=== PATIENT | male | born 1955 ===

== ENCOUNTER → 2022-07-17 12:45 | Outpatient (CLI) | payer MEDICARE, SELFPAY ==
--- NOTE | ~2022-07-17 | XR_ITS ---
XR chest 2V 07/17/2022 12:59 Indication: Chest pain Procedure: PA and lateral views of the chest Comparison: Comparison to multiple prior studies sequentially, with oldest reviewed study dated 10/22. Findings: Status post median sternotomy for CABG. No focal air space disease, pulmonary edema, pleura l effusion or suspected pneumothorax. There is minimal right basilar atelectasis. Impression: 1: Right basilar atelectasis. Reviewed, dictated and finalized at location A. [employer] Impression: 1: Right basilar atelectasis.
== END ==
PROVIDERS: PCP Family Medicine; Visit Provider Family Medicine
DX: R07.9 Chest pain, unspecified (principal); R91.8 Other nonspecific abnormal finding of lung field
CPT/HCPCS: 71046

== ENCOUNTER 2022-11-05 18:00 | Outpatient (RCR) | payer MEDICARE, SELFPAY ==
[2022-10-17 09:07] VITALS: PULSE 79
[2022-10-30 19:04] LABS: Glucose Point of Care 88 mg/dl (65-105)
[2022-11-03 19:01] LABS: Glucose Point of Care 114 mg/dl (65-105)
== END 2022-12-09 08:28 | disposition home or self-care (01) ==
LOC: ANHCPREHAB 18:00
PROVIDERS: PCP Family Medicine; Visit Provider Internal Medicine Cardiovascular Disease
DX: I20.8 Other forms of angina pectoris (principal)
CPT/HCPCS: 93798

== ENCOUNTER 2022-12-26 19:38 | Inpatient (IN) | payer MEDICARE, SELFPAY ==
--- NOTE | ~2022-12-26 | XR_ITS ---
EXAMINATION: XR chest 2V 12/26/2022 20:04 INDICATION: Chest pain. History of stent placement 3 weeks ago. PROCEDURE: 2 view chest COMPARISON: Comparison to multiple prior studies sequentially, with oldest reviewed study dated 08/29. FINDINGS: The lungs are clear. The cardiomediastinal silhouette is within normal limits. There are no pleural effusions. There is no pneumothorax suspected. Status post median sternotomy for CABG. IMPRESSION: 1: NO ACUTE CARDIOPULMONARY DISEASE. Reviewed, dictated and finalized at location A.
--- NOTE | 2022-12-26 19:42 | ECG_ITS ---
Measurements Intervals [place] Rate: 67 P: 62 MN: 161 QRS: -44 QRSD: 100 T: 63 QT: 393 QTc: 416 Interpretive Statements SINUS RHYTHM LEFT AXIS DEVIATION INCOMPLETE RIGHT BUNDLE BRANCH BLOCK DELAYED PRECORDIAL R/S TRANSITION CONSIDER INFERIOR INFARCT, AGE INDETERMINATE ABNORMAL ECG NO PREVIOUS ECG AVAILABLE FOR COMPARISON Electronically Signed On 12-26-2022 20:26:27 CDT by Jonas Pantoja D.O.
[2022-12-26 20:04] LABS: Basophils Percent Auto 0.4 % (0.2-1.2); Eosinophils Absolute Auto 0.1 K/mm3 (0-0.3); Eosinophils Percent Auto 1.6 % (0-4.4); Hematocrit 40.4 % (42.0-52.0); Hemoglobin 12.8 g/dL (14.0-18.0); Immature Granulocyte Absolute 0.01 K/mm3 (0.00-0.031); Immature Granulocyte Percent A 0.1 % (0-0.5); Lymphocytes Percent Auto 33.4 % (18.3-44.2); Mean Corpuscular HGB Conc 31.7 g/dl (32-36); Mean Corpuscular Hemoglobin 26.5 pg (26-34); Mean Corpuscular Volume 83.6 fl (80-100); Mean Platelet Volume 9.8 fl (7.4-10.4); Monocytes Absolute Auto 0.7 K/mm3 (0.1-0.6); Monocytes Percent Auto 9.5 % (2.6-8.5); Neutrophils Absolute Auto 4.1 K/mm3 (1.3-6.7); Platelet Count Result 191 k/mm3 (150-375); Red Blood Count 4.83 M/mm3 (4.6-6.20); Red Cell Distribution Width 14.2 % (11.5-14.5); White Blood Count 7.5 K/mm3 (4.5-10.0)
[2022-12-26 20:17] LABS: Alanine Aminotransferase 27 U/L (6-50); Albumin Level 4.7 g/dL (3.5-5.1); Alkaline Phosphatase 103 U/L (38-126); Anion Gap 10 mmol/L (8-16); Aspartate Amino Transferase 29 U/L (17-59); Bilirubin,Total 0.3 mg/dL (0.2-1.3); Blood Urea Nitrogen 18 mg/dL (9-20); Calcium 8.8 mg/dL (8.4-10.2); Carbon Dioxide 31 mmol/L (22-30); Chloride 96 mmol/L (98-107); Estimated Glomerular Filt Rate > 60; Glucose 129 mg/dL (65-110); Lipase 134 U/L (23-300); Sodium 137 mmol/L (137-145)
[2022-12-26 20:21] LABS: Partial Thromboplastin Time 27.9 SECONDS (22.3-36.8); Prothrombin Time 14.1 Seconds (11.1-14.7)
[2022-12-26 20:22] VITALS: BP 142/74; PULSE 74; RESP 15; TEMP 36.4; O2SAT 100
[2022-12-26 20:27] LABS: Troponin I < 0.012 ng/mL (0.000-0.034)
[2022-12-27] VITALS (17 sets, daily range): BP systolic 125–136; BP diastolic 58–69; PULSE 60–87; RESP 14–18; TEMP 36.2–36.7; O2SAT 95–100; BMI 27.2
[2022-12-27] MEDS: NITROGLYCERIN SL 0.4 MG TABLET SUBLINGUAL (00:32)
--- NOTE | 2022-12-27 00:33 | PC.NURSE ---
Patient states he took three nitro tablets around 1900 on 12/26/2022. Per patient it tasted not normal and there was no headache after taking tablets. Notified Dr. Haynes EDP about patient taking three tablets. Per EDP Dr. Haynes administer more nitro tablets 0.4mg sublingual.
--- NOTE | 2022-12-27 00:35 | PC.NURSE ---
Patient states his chest pain was a 2/10 before taking nitro tablet. Blood pressure was 125/63, SPO2 was 96%, HR was 73 bpm, and RR was 15. After five minutes of giving nitro tablets chest pain was a 1/10, blood pressure was 112/64, SPO2 was 95%, RR was 17, and HR was 74 bpm.
[2022-12-27 00:49] LABS: Troponin I 0.464 ng/mL (0.000-0.034)
--- NOTE | 2022-12-27 01:04 | ED.GENADULT ---
HPI - General Adult General Chief complaint: Chest Pain Stated complaint: CHEST PAIN RECENT STENT PLACEMENT AT [facility] Time Seen by Provider: 12/27/22 00:00 History of Present Illness HPI narrative: Patient 67-year-old gentleman who presents the emergency department with chief complaint of chest discomfort. Patient reports that he has history of cardiac disease and had a bypass and also has had stent placement patient reports that he is currently on Plavix has not missed any doses of his Plavix and reports that this evening he had tightness that began in his chest the patient states he took some nitroglycerin that did not really help much but the bottle had been open several months ago the patient states that the pain continued and was pretty mild about a 2 or 3. Related Data Home Medications Medication Instructions Recorded Confirmed omega-3 fatty acids 1,000 mg 1,000 mg PO DAILY 04/02/20 07/15/22 capsule (Fish Oil Concentrate) vitamins A,C,E-vvrj-fpudjh 4,296 1 cap PO BID 04/02/20 07/15/22 mcg-226 mg-90 mg capsule (PreserVision AREDS) Allergies Allergy/AdvReac Type Severity Reaction Status Date / Time bacitracin Allergy Unknown SKIN Verified 12/26/22 20:27 IRRITATION neomycin Allergy Unknown SKIN Verified 12/26/22 20:27 IRRITATION Penicillins Allergy Unknown Rash Verified 12/26/22 20:27 polymyxin B Allergy Unknown SKIN Verified 12/26/22 20:27 IRRITATION Review of Systems Review of Systems: A 10 system review of systems was completed on the patient and is negative except for what is stated in the HPI. Nursing and ancillary documentation was reviewed. [facility] Past Medical History Medical History CAD (coronary artery disease) HLD (hyperlipidemia) HTN (hypertension) Low testosterone Type 2 diabetes mellitus without complications Surgical History Surgical History History of coronary artery bypass graft S/P arthroscopic knee surgery Family History Family History (Updated 10/17/22 @ 08:28 by Susie Witt RN) Mother Patient's mother is in good health Father Diabetes mellitus Social History Social History Smoking packs per day: 0.5 Smoking cigarettes per day: 10.0 Years smoked: 20 Smoking pack-years: 10.00 Smoking status: Former smoker Smoking end date: 06/01/01 Alcohol intake: never Substance use: never Substance use type: does not use Living arrangements: with family Occupation/Education: occupation Gender identity (if verbalized by the patient): Male Exam Narrative: GENERAL: Well-appearing, well-nourished, and in no acute distress. HEAD: Normocephalic, atraumatic. EYES: PERRLA and EOMI. ENT: Nares clear, no rhinorrhea or epistaxis. Mucous membranes moist. NECK: Supple. CHEST: Clear to auscultation. No respiratory distress. HEART: Regular rate and rhythm. No murmur heard. Normal peripheral pulses. ABDOMEN: Soft, nontender, nondistended, normal active bowel sounds. EXTREMITIES: Normal range of motion. No edema. SKIN: Warm, dry, no rash. NEURO: No focal deficits. Alert and oriented x3. PSYCH: Normal mood and affect. Course Vital Signs Vital signs: Vital Signs Temperature 36.4 C 12/26/22 20:22 Pulse Rate 74 12/26/22 20:22 Respiratory Rate 15 12/26/22 20:22 Blood Pressure 142/74 H 12/26/22 20:22 Pulse Oximetry 100 12/26/22 20:22 Oxygen Delivery Room Air 12/26/22 20:22 Temperature 36.4 C 12/26/22 20:22 Pulse Rate 66 12/27/22 00:01 Respiratory Rate 17 12/27/22 00:01 Blood Pressure 128/63 12/27/22 00:01 Pulse Oximetry 97 12/27/22 00:01 Oxygen Delivery Room Air 12/27/22 00:01 Medical Decision Making [facility] Narrative Medical decision making narrative: Differential diagnosis includes ACS, noncardiac c
[2022-12-27] MEDS: ENOXAPARIN 100 MG/ML SYRINGE 95 MG SUB-Q ×3 (01:11→21:42)
--- NOTE | 2022-12-27 03:12 | ADMGEN ---
This patient, Micheal Chin, was admitted to IMU Room 209-01 at 0312. Patient/family oriented to hospital policies and general routines including ID bracelet, bed and alarms, visiting hours, pain management, procedures, bathroom and other care routines, personal items, smoking policy, room service/diet, and visiting hours. Information on how to activate the Rapid Response Team has been discussed. Patient/Family are encouraged to report perceived risks to care and to ask questions if they do not understand what they are told or what they should do.
--- NOTE | 2022-12-27 04:07 | ECG_ITS ---
Measurements Intervals [place] Rate: 65 P: [place]: 0 QRS: -36 QRSD: 116 T: 78 QT: 394 QTc: 411 Interpretive Statements SINUS RHYTHM LEFT AXIS DEVIATION INTRAVENTRICULAR CONDUCTION DELAY DELAYED PRECORDIAL R/S TRANSITION INFERIOR INFARCT, AGE INDETERMINATE ABNORMAL ECG COMPARED TO ECG 12/26/2022 19:46:55 NO SIGNIFICANT CHANGES Electronically Signed On 12-27-2022 11:03:54 CDT by Jonas Pantoja D.O.
[2022-12-27 08:53] LABS: Glucose Point of Care 132 mg/dl (65-105)
--- NOTE | 2022-12-27 09:39 | PM.IMHP ---
H&P: HPI History of Present Illness Date/Time: 12/27/22 09:39 Chief Complaint: Chest pain Narrative: Patient 67-year-old gentleman who presents the emergency department with chief complaint of chest discomfort.? Patient reports that he has history of cardiac disease and had a bypass and also has had stent placement patient reports that he is currently on Plavix has not missed any doses of his Plavix and reports that this evening he had tightness that began in his chest the patient states he took some nitroglycerin that did not really help much but the bottle had been open several months ago the patient states that the pain continued and was pretty mild about a 2 or 3. Review of Systems Review of Systems: - CONSTITUTIONAL: Denies weight loss, fever and chills. - HEENT: Denies changes in vision and hearing - RESPIRATORY: Denies SOB and cough. - CV: Denies palpitations and reports CP. - GI: Denies abdominal pain, nausea, vomiting and diarrhea. - : Denies dysuria and urinary frequency. - MSK: Denies myalgia and joint pain. - SKIN: Denies rash and pruritus. - NEUROLOGICAL: Denies headache and syncope. - PSYCHIATRIC: Denies recent changes in mood. Denies anxiety and depression. [facility] Past Medical History Medical History CAD (coronary artery disease) HLD (hyperlipidemia) HTN (hypertension) Low testosterone Type 2 diabetes mellitus without complications Surgical History Surgical History History of coronary artery bypass graft S/P arthroscopic knee surgery Family History Family History (Updated 10/17/22 @ 08:28 by Susie Witt RN) Mother Patient's mother is in good health Father Diabetes mellitus Social History Social History Smoking packs per day: 0.5 Smoking cigarettes per day: 10.0 Years smoked: 30 Smoking pack-years: 15.00 Smoking status: Former smoker Tobacco type: cigarettes Second hand tobacco smoke exposure: No Smoking end date: 06/01/05 Alcohol intake: never Substance use: never Substance use type: does not use Lack of Transportation: No Lack of Food: Never True Current Housing: I Have Housing Concerned About Future Housing: No Difficulty Paying Gas/Electric Bills: No Difficulty Paying for Meds: No Currently Unemployed: No Education: Master's Degree or Higher Difficulty w/ Childcare or Family Care: No Living arrangements: with family Occupation/Education: occupation Gender identity (if verbalized by the patient): Male Spiritual care concerns: No Meds Home Medications and Allergies Home Medications Medication Instructions Recorded Confirmed Type omega-3 fatty acids 1,000 mg 1,000 mg PO DAILY 04/02/20 12/27/22 History capsule (Fish Oil Concentrate) vitamins A,C,Q-tjws-hsptjr 4,296 1 cap PO BID 04/02/20 12/27/22 History mcg-226 mg-90 mg capsule (PreserVision AREDS) metoprolol succinate 50 mg 50 mg PO DAILY #90 tabs 12/27/21 12/27/22 Rx tablet,extended release 24 hr empagliflozin 10 mg tablet 10 mg PO DAILY #90 tabs 08/08/22 12/27/22 Rx (Jardiance) linagliptin 5 mg tablet (Tradjenta) 5 mg PO QAM #90 tabs 08/15/22 12/27/22 Rx metformin 500 mg tablet,extended 1,000 mg PO BID #360 tabs 09/24/22 12/27/22 Rx release 24 hr atorvastatin 40 mg tablet 40 mg PO DAILY #90 tabs 11/19/22 12/27/22 Rx Adult One Daily Multivitamin 1 tablet PO BID 12/27/22 12/27/22 History Plavix 75 mg PO DAILY 12/27/22 12/27/22 History acetyltyrosine-vitamin B6 1 cap PO BID 12/27/22 12/27/22 History aspirin 81 mg tablet 81 mg PO DAILY 12/27/22 12/27/22 History finasteride 1 mg tablet (Propecia) 1 mg PO DAILY 12/27/22 12/27/22 History glimepiride 1 mg PO DAILY 12/27/22 12/27/22 History ranolazine 1,000 mg PO BID 12/27/22 12/27/22 History Allergies
--- NOTE | 2022-12-27 09:44 | PM.CNCAR ---
Assessment and Plan Assessment and plan (1) Non-STEMI (non-ST elevated myocardial infarction): Code(s): I21.4 - Non-ST elevation (NSTEMI) myocardial infarction Status: Acute Plan This is a 67-year-old man with multivessel coronary disease, previous CORETTA graft to the LAD recent aggressive PCI to the proximal LAD into the 1st diagonal branch involving rotational atherectomy and stenting done in October of this year at [place]. He was seen 3 days ago by his shuttlecock assembler there and was stable at that time. He now has had an episode of ischemic pain and a troponin rise consistent with a non ST elevation IN. The most likely scenario is that the patient has experienced to stent thrombosis regarding his recently deployed device. Because most of his LAD receives flow from his CORETTA graft his ECG is essentially unremarkable. The patient family and I had a long extensive conversation in the room today for at least 45-50 minutes discussing the options. Obviously 1 option is to transfer him back to [place] to consider follow-up angiography today to assess the status of his proximal LAD/1st diagonal stent. Another option is to be more conservative, treat this medically and he can follow-up earlier than scheduled with his established physician there. Go given the complexity of his disease and the fact that he required rotational atherectomy I do not believe it is reasonable or prudent to bring him to the laboratory worker here at [facility]. At this point the patient and the family are considering these options. If they choose to be aggressive then I would recommend transferring him over to [place] where his physicians can review his recent angiograms and make the decision whether it is reasonable or worthwhile to bring him back to the laboratory worker again. I would recommend continuing his dual anti-platelet therapy statin and beta-thien which for some reason have not been ordered since he has been hospitalized. Sheldon Wilson MD [facility] History of Present Illness History of Present Illness Consult date/time: 12/27/22 09:44 Reason For Visit: chest pain, elevated troponin Narrative: This is a 67-year-old man I am seeing today at the request of the hospitalist because of a non ST elevation IN. The patient is known to me from a long time ago and has a longstanding history of coronary artery disease. He currently receives his care from a physician at [facility] but has been transferring his care from 1 shuttlecock assembler to another for a while now. He was in his usual state of health when in the middle of the 90 started to have some pressure-like retrosternal chest pain that it was moderate in intensity he had his family drive him and [facility]'s emergency room for evaluation where he was seen and evaluated and admitted to the hospital. His troponin levels initially were normal but have risen to a level of 1.65. His electrocardiogram shows no acute ischemic changes or changes of acute injury. In this setting I am seeing him in consultation. The patient has he has some very mild residual central chest discomfort or something feels just not quite right but otherwise is visiting with his family and does not have any complaints otherwise at this time. He has a long history of coronary artery disease with previous coronary bypass grafting and PCI. He recently came under the care of his current shuttlecock assembler in September of this year who was seeing him for a 2nd opinion because of anginal chest pain with exertion that was persistent despite aggressive medical therapy. Catheterization demonstrated significant proximal LAD disease jeopardizing flow into a proximal diagonal branch. The remainder of his LAD apparently received perfusion from a previously placed CORETTA graft. He also has moderate nonocclusive disease in the right coronary and circumflex. Here 0 he underwent an aggressive intervention in the proximal LAD into the diagonal involving rotational atherectomy, drug-elu
[2022-12-27] MEDS: ASPIRIN 81 MG CHEWABLE TABLET PO (10:47)
[2022-12-27] MEDS: OMEGA 3 POLYUNSAT FATTY ACIDS 1 GM CAP PO (10:48)
[2022-12-27] MEDS: CLOPIDOGREL BISULFATE 75 MG TABLET PO (10:48)
[2022-12-27] MEDS: EMPAGLIFLOZIN 10 MG TABLET PO (10:48)
[2022-12-27] MEDS: ATORVASTATIN 40 MG TABLET PO (10:48)
[2022-12-27] MEDS: OPTI-GEN TAB 1 TABLET PO ×2 (10:48→18:47)
[2022-12-27] MEDS: RANOLAZINE 500 MG TAB.ER.12H 1000 MG PO ×2 (10:49→21:41)
[2022-12-27] MEDS: GLIMEPIRIDE 1 MG TABLET PO (10:50)
[2022-12-27] MEDS: METOPROLOL SUCCINATE EXT REL 50 MG TABCR PO (10:56)
[2022-12-27] MEDS: MULTIVITAMINS THERAPEUTIC TAB (*BKC) 1 TABLET PO (18:47)
[2022-12-28] VITALS (14 sets, daily range): BP systolic 112–134; BP diastolic 58–65; PULSE 53–76; RESP 14–20; TEMP 36.3–36.7; O2SAT 96–98
[2022-12-28] MEDS: OMEGA 3 POLYUNSAT FATTY ACIDS 1 GM CAP PO (09:47)
[2022-12-28] MEDS: ASPIRIN 81 MG CHEWABLE TABLET PO (09:47)
[2022-12-28] MEDS: GLIMEPIRIDE 1 MG TABLET PO (09:48)
[2022-12-28] MEDS: OPTI-GEN TAB 1 TABLET PO ×2 (09:48→17:36)
[2022-12-28] MEDS: RANOLAZINE 500 MG TAB.ER.12H 1000 MG PO ×2 (09:48→20:01)
[2022-12-28] MEDS: METOPROLOL SUCCINATE EXT REL 50 MG TABCR PO (09:49)
[2022-12-28] MEDS: CLOPIDOGREL BISULFATE 75 MG TABLET PO (09:49)
[2022-12-28] MEDS: ATORVASTATIN 40 MG TABLET PO (09:54)
[2022-12-28] MEDS: EMPAGLIFLOZIN 10 MG TABLET PO (09:54)
[2022-12-28] MEDS: MULTIVITAMINS THERAPEUTIC TAB (*BKC) 1 TABLET PO ×2 (09:54→17:36)
[2022-12-28] MEDS: ENOXAPARIN 100 MG/ML SYRINGE 95 MG SUB-Q ×2 (09:54→20:01)
[2022-12-28 10:01] LABS: Glucose Point of Care 228 mg/dl (65-105)
--- NOTE | 2022-12-28 11:38 | PM.IMPN ---
Progress Note: A&P Assessment and Plan (1) Type 2 diabetes mellitus without complications: Qualifiers: Diabetes mellitus group home insulin use: without group home use Qualified Code(s): E11.9 - Type 2 diabetes mellitus without complications Code(s): E11.9 - Type 2 diabetes mellitus without complications Status: Acute (2) HTN (hypertension): Qualifiers: Hypertension type: essential hypertension Qualified Code(s): I10 - Essential (primary) hypertension Code(s): I10 - Essential (primary) hypertension Status: Acute (3) CAD (coronary artery disease): Code(s): I25.10 - Atherosclerotic heart disease of [place] coronary artery without angina pectoris Status: Acute (4) HLD (hyperlipidemia): Qualifiers: Hyperlipidemia type: mixed hyperlipidemia Qualified Code(s): E78.2 - Mixed hyperlipidemia Code(s): E78.5 - Hyperlipidemia, unspecified Status: Acute (5) Low testosterone: Code(s): R79.89 - Other specified abnormal findings of blood chemistry Status: Acute (6) Non-STEMI (non-ST elevated myocardial infarction): Code(s): I21.4 - Non-ST elevation (NSTEMI) myocardial infarction Status: Acute Plan Patient presented with chest pain. Known history of coronary artery disease status post CABG and stents. Underlying hypertension hyperlipidemia and type 2 diabetes mellitus. Chest x-ray with no focal infiltrate. EKG was sinus rhythm no ST-T changes. Initial troponin was negative however 3 hour delta troponin came back elevated at 0.464 and continued to rise to 1.6 this a.m.. Lipase is normal. Admit for non-STEMI. Lovenox dose given in the ER and did receive aspirin. He is already on aspirin and Plavix at home. Cardiology has been consulted. Lovenox received. Diagnostic CT showed significant proximal LAD disease underwent rotational atherectomy with drug-eluting stent placement to large diagonal and proximal LAD segment. This was performed on 11/28/2022. He also had moderate disease involving circumflex and RCA. Recently went to see his regular counter server of for follow-up. Discussed with Cardiology. Due to non STEMI and recent workup at [place] recommend transfer to higher facility this was discussed with the patient and wants to get transferred to [place] for further treatment. Transfer excepted by cardiology team at [place]. Awaiting bed placement Subjective Date/time seen: 12/28/22 11:38 Interval history: No further chest pain. Able to ambulate. No fever chills. No shortness of breath all questions answered Review of Systems Review of Systems: All systems reviewed & are unremarkable except as noted in HPI and below Exam Narrative: GENERAL: Well-appearing, well-nourished, and in no acute distress. HEAD: Normocephalic, atraumatic. EYES: PERRLA and EOMI. ENT: Nares clear, no rhinorrhea or epistaxis.? Mucous membranes moist. NECK: Supple. CHEST: Clear to auscultation.? No respiratory distress. HEART: Regular rate and rhythm.? No murmur heard.? Normal peripheral pulses. ABDOMEN: Soft, nontender, nondistended, normal active bowel sounds. EXTREMITIES: Normal range of motion.? No edema. SKIN: Warm, dry, no rash. NEURO: No focal deficits.? Alert and oriented x3. PSYCH: Normal mood and affect. Objective Data Vital Signs Vital Signs: Vital Signs - 24 hr 12/27/22 11:47 12/27/22 12:00 12/27/22 12:00 Temperature 97.8 F Pulse Rate 71 70 70 Respiratory Rate 16 16 Blood Pressure 127/61 Pulse Oximetry 99 99 Oxygen Delivery Room Air 12/27/22 16:00 12/27/22 14:00 12/27/22 16:00 Temperature 97.4 F L Pulse Rate 66 72 69 Respiratory Rate 14 Blood Pressure 125/61 Pulse Oximetry 97 Oxygen Delivery 12/27/22 18:00 12/27/22 16:00 12/27/22 19:08 Temperature 97.2 F L Pulse Rate 87 87 66 Respiratory Rate 14 16 Blood Pressure 128/69 Pulse Oximetry 97 98 Oxygen Delivery Room Air 11/30
[2022-12-28 14:44] LABS: Troponin I 0.529 ng/mL (0.000-0.034)
[2022-12-28] MEDS: NITROGLYCERIN SL 0.4 MG TABLET SUBLINGUAL (16:41)
[2022-12-29] VITALS (17 sets, daily range): BP systolic 105–141; BP diastolic 50–68; PULSE 53–68; RESP 10–20; TEMP 36.4–36.7; O2SAT 96–100
[2022-12-29 08:08] LABS: Basophils Percent Auto 0.6 % (0.2-1.2); Eosinophils Absolute Auto 0.1 K/mm3 (0-0.3); Hemoglobin 14.6 g/dL (14.0-18.0); Immature Granulocyte Absolute 0.02 K/mm3 (0.00-0.031); Immature Granulocyte Percent A 0.3 % (0-0.5); Lymphocytes Absolute Auto 2.18 K/mm3 (0.9-3.2); Lymphocytes Percent Auto 31.8 % (18.3-44.2); Mean Corpuscular HGB Conc 32.4 g/dl (32-36); Mean Corpuscular Hemoglobin 26.8 pg (26-34); Mean Corpuscular Volume 82.6 fl (80-100); Mean Platelet Volume 10.2 fl (7.4-10.4); Monocytes Absolute Auto 0.5 K/mm3 (0.1-0.6); Monocytes Percent Auto 7.6 % (2.6-8.5); Neutrophils Percent Auto 57.7 % (45.5-73.1); Platelet Count Result 206 k/mm3 (150-375); Red Blood Count 5.45 M/mm3 (4.6-6.20); Red Cell Distribution Width 14.2 % (11.5-14.5); White Blood Count 6.9 K/mm3 (4.5-10.0)
[2022-12-29 08:21] LABS: Alanine Aminotransferase 46 U/L (6-50); Albumin Level 4.6 g/dL (3.5-5.1); Alkaline Phosphatase 76 U/L (38-126); Anion Gap 7 mmol/L (8-16); Aspartate Amino Transferase 57 U/L (17-59); Bilirubin,Total 0.3 mg/dL (0.2-1.3); Blood Urea Nitrogen 25 mg/dL (9-20); Calcium 9.1 mg/dL (8.4-10.2); Carbon Dioxide 27 mmol/L (22-30); Chloride 99 mmol/L (98-107); Estimated CRCL calculation 81 ml/min; Estimated Glomerular Filt Rate > 60; Glucose 165 mg/dL (65-110); Magnesium 1.9 mg/dL (1.6-2.3); Potassium 4.2 mmol/L (3.4-5.0); Sodium 133 mmol/L (137-145)
[2022-12-29] MEDS: EMPAGLIFLOZIN 10 MG TABLET PO (11:09)
[2022-12-29] MEDS: ENOXAPARIN 100 MG/ML SYRINGE 95 MG SUB-Q ×2 (11:11→21:21)
[2022-12-29] MEDS: METOPROLOL SUCCINATE EXT REL 50 MG TABCR PO (11:11)
[2022-12-29] MEDS: MULTIVITAMINS THERAPEUTIC TAB (*BKC) 1 TABLET PO ×2 (11:12→17:00)
[2022-12-29] MEDS: GLIMEPIRIDE 1 MG TABLET PO (11:12)
[2022-12-29] MEDS: OPTI-GEN TAB 1 TABLET PO ×2 (11:12→17:00)
[2022-12-29] MEDS: ASPIRIN 81 MG CHEWABLE TABLET PO (11:12)
[2022-12-29] MEDS: OMEGA 3 POLYUNSAT FATTY ACIDS 1 GM CAP PO (11:12)
[2022-12-29] MEDS: ATORVASTATIN 40 MG TABLET PO (11:12)
[2022-12-29] MEDS: CLOPIDOGREL BISULFATE 75 MG TABLET PO (11:12)
[2022-12-29] MEDS: RANOLAZINE 500 MG TAB.ER.12H 1000 MG PO ×2 (11:20→21:21)
--- NOTE | 2022-12-29 11:52 | PM.PNCARD ---
Progress Note: A&P Assessment and Plan (1) Non-STEMI (non-ST elevated myocardial infarction): Code(s): I21.4 - Non-ST elevation (NSTEMI) myocardial infarction Status: Acute Plan 67-year-old man with coronary artery disease recent complex PCI to the proximal LAD/1st diagonal as detailed in the notes above done at [facility]. He presents with a non ST elevation OR over the weekend here. He is otherwise clinically stable at this time. Awaiting transfer to [place], bed availability is apparently delaying the process of transfer. He is otherwise very stable. Spoke to the patient again about this situation again I do not have any weight influence bed availability at [place] and accelerate this process. Sheldon Wilson MD [facility] Subjective Date/time seen: Date of service: 12/29/22 11:52 Interval history: Follow-up visit in this 67-year-old man with: Coronary artery disease presenting over the weekend here with acute coronary syndrome, non ST-elevation OR. Patient with recent complex PCI to the proximal LAD/1st diagonal at [place] involving rotational atherectomy and stenting. Complexity of the case was dictated in my consult note. Since then he has been stable troponins are down trending and he is no longer having any ischemic symptoms. Patient is awaiting transfer to [place] for follow-up evaluation at that institution. I was asked to see him today by the patient/family and family service caseworker apparently the patient is wanting to speak to me again about the delay in getting a bed available at [place] for his transfer there. We had a long conversation about this on Thursday and I do not believe for perceive any change in his condition between then and this morning. Exam Const: General: comfortable and no acute distress HENMT: Mouth: Yes moist mucous membranes Eyes: Sclera: sclerae normal Neck: Neck: supple and no JVD Resp: Effort & Inspection: normal respiratory effort Auscultation: clear to auscultation bilaterally Cardio: Rate: regular rate Rhythm: regular rhythm Skin: General skin exam: normal color Neuro: Other: Alert and oriented Extrem: Other: No edema, good perfusion Objective Data Vital Signs Vital Signs: Vital Signs - 24 hr 12/28/22 12:00 12/28/22 12:00 12/28/22 14:00 Temperature 36.4 C Pulse Rate 67 68 64 Respiratory Rate 20 Blood Pressure 134/61 Pulse Oximetry 98 Oxygen Delivery 12/28/22 16:00 12/28/22 12:00 12/28/22 16:00 Temperature Pulse Rate 68 68 Respiratory Rate 20 Blood Pressure Pulse Oximetry 98 98 Oxygen Delivery Room Air Room Air 12/28/22 16:00 12/28/22 18:00 12/28/22 20:00 Temperature 36.6 C 36.7 C Pulse Rate 68 67 65 Respiratory Rate 14 18 Blood Pressure 126/62 122/65 Pulse Oximetry 98 98 Oxygen Delivery 12/28/22 20:00 12/28/22 22:00 12/28/22 20:00 Temperature Pulse Rate 64 70 70 Respiratory Rate 18 Blood Pressure Pulse Oximetry 98 Oxygen Delivery Room Air 12/29/22 00:00 12/29/22 00:00 12/29/22 02:00 Temperature 36.6 C Pulse Rate 65 63 59 L Respiratory Rate 18 Blood Pressure 105/50 L Pulse Oximetry 98 Oxygen Delivery 12/29/22 04:00 12/29/22 04:00 12/29/22 06:00 Temperature 36.7 C Pulse Rate 53 L 53 L 55 L Respiratory Rate 18 Blood Pressure 117/64 Pulse Oximetry 99 Oxygen Delivery 12/29/22 07:44 12/29/22 08:00 12/29/22 11:11 Temperature 36.7 C Pulse Rate 61 64 64 Respiratory Rate 10 L Blood Pressure 117/67 Pulse Oximetry 100 Oxygen Delivery 12/29/22 08:00 12/29/22 11:40 Temperature 36.4 C Pulse Rate 64 63 Respiratory Rate 10 L 12 Blood Pressure 135/65 Pulse Oximetry 100 98 Oxygen Delivery Room Air Intake/Output Intake/Output: Intake & Output 12/26/22 12/27/22 12/28/22 12/29/22 23:59 23:59 23:59 23:59 Intake Total 3780 6370 660 Output Total 3 Balance 1607 6370 660 Meds/Results Medications: Active
--- NOTE | 2022-12-29 14:48 | PM.IMPN ---
Progress Note: A&P Assessment and Plan (1) Type 2 diabetes mellitus without complications: Qualifiers: Diabetes mellitus half-way insulin use: without half-way use Qualified Code(s): E11.9 - Type 2 diabetes mellitus without complications Code(s): E11.9 - Type 2 diabetes mellitus without complications Status: Acute (2) HTN (hypertension): Qualifiers: Hypertension type: essential hypertension Qualified Code(s): I10 - Essential (primary) hypertension Code(s): I10 - Essential (primary) hypertension Status: Acute (3) CAD (coronary artery disease): Code(s): I25.10 - Atherosclerotic heart disease of [place] coronary artery without angina pectoris Status: Acute (4) HLD (hyperlipidemia): Qualifiers: Hyperlipidemia type: mixed hyperlipidemia Qualified Code(s): E78.2 - Mixed hyperlipidemia Code(s): E78.5 - Hyperlipidemia, unspecified Status: Acute (5) Low testosterone: Code(s): R79.89 - Other specified abnormal findings of blood chemistry Status: Acute (6) Non-STEMI (non-ST elevated myocardial infarction): Code(s): I21.4 - Non-ST elevation (NSTEMI) myocardial infarction Status: Acute Plan Patient presented with chest pain. Known history of coronary artery disease status post CABG and stents. Underlying hypertension hyperlipidemia and type 2 diabetes mellitus. Chest x-ray with no focal infiltrate. EKG was sinus rhythm no ST-T changes. Initial troponin was negative however 3 hour delta troponin came back elevated at 0.464 and continued to rise to 1.6 this a.m.. Lipase is normal. Admit for non-STEMI. Lovenox dose given in the ER and did receive aspirin. He is already on aspirin and Plavix at home. Cardiology has been consulted. Lovenox received. Diagnostic CT showed significant proximal LAD disease underwent rotational atherectomy with drug-eluting stent placement to large diagonal and proximal LAD segment. This was performed on 11/28/2022. He also had moderate disease involving circumflex and RCA. Recently went to see his regular director of math of for follow-up. Discussed with Cardiology. Due to non STEMI and recent workup at [place] recommend transfer to higher facility this was discussed with the patient and wants to get transferred to [place] for further treatment. Transfer accepted by cardiology team at [place]. Awaiting bed placement which is however has been delayed. Discussed with patient and family in detail. Subjective Date/time seen: 12/29/22 14:48 Interval history: Awaiting bed at [place]. Still no bed available. Initially wanted to go home and do it as an outpatient which is still option. He will continue on all his usual medication. No further chest pain. Denies any shortness of breath. Review of Systems Review of Systems: All systems reviewed & are unremarkable except as noted in HPI and below Exam Narrative: GENERAL: Well-appearing, well-nourished, and in no acute distress. HEAD: Normocephalic, atraumatic. EYES: PERRLA and EOMI. ENT: Nares clear, no rhinorrhea or epistaxis.? Mucous membranes moist. NECK: Supple. CHEST: Clear to auscultation.? No respiratory distress. HEART: Regular rate and rhythm.? No murmur heard.? Normal peripheral pulses. ABDOMEN: Soft, nontender, nondistended, normal active bowel sounds. EXTREMITIES: Normal range of motion.? No edema. SKIN: Warm, dry, no rash. NEURO: No focal deficits.? Alert and oriented x3. PSYCH: Normal mood and affect. Objective Data Vital Signs Vital Signs: Vital Signs - 24 hr 12/28/22 16:00 12/28/22 16:00 12/28/22 16:00 Temperature 97.9 F Pulse Rate 68 68 Respiratory Rate 14 Blood Pressure 126/62 Pulse Oximetry 98 98 Oxygen Delivery Room Air 12/28/22 18:00 12/28/22 20:00 12/28/22 20:00 Temperature 98.1 F Pulse Rate 67 65 64 Respiratory Rate 18 Blood Pressure 122/65 Pulse Oximetry 98 Oxygen Delivery
[2022-12-30] VITALS (16 sets, daily range): BP systolic 122–130; BP diastolic 56–67; PULSE 57–80; RESP 14–18; TEMP 36.3–36.6; O2SAT 96–100
--- NOTE | 2022-12-30 | ECHO_ITS ---
Patient Info Name: Micheal Chin Age: 67 years : 1955 Gender: Male Ht: 73 in Wt: 207 lbs BSA: 2.21 m2 HR: 59 bpm BP: 124 / 62 mmHg Heart Rhythm: Sinus Rhythm Technical Quality: Good Exam Date: 12/30/2022 8:28 AM Exam Location: [facility] Patient Status: Inpatient Admit Date: 12/27/2022 Staff Ordering Physician: Nate Cao MD Community Service Manager: Radha Laguerre RDCS Attending Provider: Nate Cao MD Exam Type: CA echo dop color flow w con Study Info Indications R07.9 - Chest pain, unspecified Complete two-dimensional, color flow and Doppler transthoracic echocardiogram is performed with contrast to opacify the left ventricle and to improve the deliniation of the left ventricle endocardial borders. Contrast/Agitated Saline Contrast/Ag. Saline: Definity Amount: 2.00 ml Administered By: Radha Laguerre RDCS Existing IV Access: Yes IV Access Condition: patent with no signs of infiltration Summary 1. Normal left ventricular size with moderate concentric hypertrophy. Overall good left ventricular function, but with mild hypokinesis of the basal septum. Ejection fraction visually is 55-60%. Global longitudinal strain is mildly diminished at -15%. Diastolic dysfunction, grade 2, is present. 2. No significant valve disease. 3. Normal estimated pulmonary pressure. 4. Normal sinus rhythm. 5. Somewhat technically difficult study; definity echo contrast used. Left Ventricle Left ventricular chamber dimension is normal. Left ventricular systolic function is normal, estimated at 55-60%. There is moderately increased left ventricular wall thickness. Left ventricular septal wall motion is normal. The left ventricular diastolic function is grade II diastolic dysfunction. Global longitudinal strain is mildly elevated at -15 %. Right Ventricle Right ventricular chamber dimension is normal. Right ventricular systolic function is normal. Left Atria Left atrial chamber dimension is normal. Right Atria Right atrial chamber dimension is normal. Aortic Valve The aortic valve is trileaflet. There is mild aortic valve sclerosis. There is no aortic valve stenosis. There is trace aortic valve regurgitation. Pulmonic Valve The pulmonic valve is normal. There is no pulmonic valve stenosis. There is trace pulmonic regurgitation. Mitral Valve The mitral valve has normal leaflets. There is no mitral valve stenosis. There is trace mitral valve regurgitation. Tricuspid Valve The tricuspid valve leaflets are normal. There is no significant tricuspid valve stenosis. There is trace tricuspid valve regurgitation. No pulmonary hypertension, estimated pulmonary arterial systolic pressure is 31 mmHg. Pericardium/Pleural The pericardium appears normal. There is no pericardial effusion. Inferior Vena Cava Normal inferior vena cava with >50% collapse upon inspiration consistent with Empty right atrial pressure, 10 mmHg. Aorta The aortic root size at the sinus of Valsalva is normal. The prox ascending aorta size is normal. The abdominal aorta size is not well visualized. Left Ventricular Outflow Tract Name Value Normal LVOT 2D LVOT Diameter 2.18 cm LVOT Doppler
[2022-12-30] MEDS: PERFLUTREN LIPID MICROSPHERES 1.5 ML VIAL DILUTED TO 10 ML TOTAL VOLUME IV PUSH (09:05)
[2022-12-30] MEDS: ASPIRIN 81 MG CHEWABLE TABLET PO (10:47)
[2022-12-30] MEDS: METOPROLOL SUCCINATE EXT REL 50 MG TABCR PO (10:48)
[2022-12-30] MEDS: GLIMEPIRIDE 1 MG TABLET PO (10:49)
[2022-12-30] MEDS: RANOLAZINE 500 MG TAB.ER.12H 1000 MG PO ×2 (10:49→20:12)
[2022-12-30] MEDS: EMPAGLIFLOZIN 10 MG TABLET PO (10:49)
[2022-12-30] MEDS: OPTI-GEN TAB 1 TABLET PO ×2 (10:49→17:52)
[2022-12-30] MEDS: ATORVASTATIN 40 MG TABLET PO (10:49)
[2022-12-30] MEDS: MULTIVITAMINS THERAPEUTIC TAB (*BKC) 1 TABLET PO ×2 (10:49→17:52)
[2022-12-30] MEDS: CLOPIDOGREL BISULFATE 75 MG TABLET PO (10:49)
[2022-12-30] MEDS: ENOXAPARIN 100 MG/ML SYRINGE 95 MG SUB-Q ×2 (10:50→20:12)
[2022-12-30] MEDS: OMEGA 3 POLYUNSAT FATTY ACIDS 1 GM CAP PO (10:50)
[2022-12-30 11:58] LABS: Glucose Point of Care 191 mg/dl (65-105)
[2022-12-30 14:44] LABS: Hematocrit 44.4 % (42.0-52.0); Hemoglobin 14.4 g/dL (14.0-18.0); Mean Corpuscular HGB Conc 32.4 g/dl (32-36); Mean Corpuscular Hemoglobin 27.1 pg (26-34); Mean Corpuscular Volume 83.6 fl (80-100); Mean Platelet Volume 10.1 fl (7.4-10.4); Platelet Count Result 207 k/mm3 (150-375); Red Blood Count 5.31 M/mm3 (4.6-6.20); Red Cell Distribution Width 14.2 % (11.5-14.5); White Blood Count 6.5 K/mm3 (4.5-10.0)
[2022-12-30 14:58] LABS: Alanine Aminotransferase 101 U/L (6-50); Albumin Level 4.7 g/dL (3.5-5.1); Alkaline Phosphatase 88 U/L (38-126); Anion Gap 8 mmol/L (8-16); Aspartate Amino Transferase 95 U/L (17-59); Bilirubin,Total 0.4 mg/dL (0.2-1.3); Blood Urea Nitrogen 23 mg/dL (9-20); Calcium 8.9 mg/dL (8.4-10.2); Carbon Dioxide 27 mmol/L (22-30); Chloride 99 mmol/L (98-107); Estimated CRCL calculation 81 ml/min; Estimated Glomerular Filt Rate > 60; Glucose 164 mg/dL (65-110); Potassium 4.6 mmol/L (3.4-5.0); Sodium 134 mmol/L (137-145)
--- NOTE | 2022-12-30 15:09 | PM.PNCARD ---
Progress Note: A&P Assessment and Plan (1) Non-STEMI (non-ST elevated myocardial infarction): Code(s): I21.4 - Non-ST elevation (NSTEMI) myocardial infarction Status: Acute Assessment and Plan: History of RCA stent, CABG with AGUERO to the Left anterior descending, complex PCI of the proximal Left anterior descending and large diagonal in October 2022 as described above. Admitted with a non-STEMI. Doing well on full-dose Lovenox. Echo did not show any problems with the anterior are anterolateral wall which is good. Some basal septal hypokinesis which apparently is new, on reviewing the patient's old studies including his echo done at [facility] in July 2022. Do not know if the septal branch was involved in patient's PCI. 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 Extensive discussions with the patient and his family. --I expressed my opinion that the safest thing to do is to stay, wait for transfer, and likely proceed with cardiac catheterization at [facility]. I think that, if he chose to go home, his risk of a cardiovascular event would be low but of course not 0. --if he chooses to go home, we could change his Plavix to Brilinta, or discharge him on Lovenox. (1 of his daughters is a nurse and can administer injections) --he will think about it and let us know. (2) CAD (coronary artery disease): Code(s): I25.10 - Atherosclerotic heart disease of [place] coronary artery without angina pectoris Status: Acute Assessment and Plan: As above. --continue aspirin, clopidogrel, until is 18, metoprolol Subjective Date/time seen: 12/30/22 15:09 Interval history: Follow-up for non-STEMI, CAD. Followed by Dr. Joe Morales at [facility]. 12/29/2022: 67-year-old man with coronary artery disease recent complex PCI to the proximal LAD/1st diagonal as detailed in the notes above done at [facility].? He presents with a non ST elevation MS over the weekend here.? He is otherwise clinically stable at this time.? Awaiting transfer to [place], bed availability is apparently delaying the process of transfer.? He is otherwise very stable.? Date of service 12/30/2022: Patient remains chest pain-free, on Lovenox. Daughters, at bedside. Ambulating. Patient is very eager to have resolution of his problem. So far, no beds available at [facility]. Patient is considering discharge an outpatient follow-up there. Review of Systems Review of Systems: No shortness of breath, chest pain, dizziness, trouble walking, or eating difficulties. Exam Const: General: cooperative, healthy appearing and comfortable; No confusion Orientation/consciousness: oriented to person, patient oriented x3 and No confusion Other: Very cordial and pleasant middle-aged male in no distress, up and ambulating in the room. Resp: Effort & Inspection: normal respiratory effort Auscultation: clear to auscultation bilaterally Cardio: Rate: regular rate Rhythm: regular rhythm GI: Inspection: normal to inspection GI Palp: No abdominal tenderness Neuro: General: oriented to person, patient oriented x3 and No confusion Extrem: Right lower extremity: no edema Left lower extremity: no edema Psych: Appearance: grossly normal Mental Status: mental status grossly normal Objective Data Vital Signs Vital Signs: Vital Signs - 24 hr 12/29/22 16:00 12/29/22 16:00 12/29/22 16:00 Temperature 97.8 F Pulse Rate 65 65 Respiratory Rate 14 Blood Pressure 141/67 H Pulse Oximetry 100 Oxygen Delivery Room Air Fraction of Inspired Oxygen 12/29/22 18:00 12/29/22 20:00 12/29/22 23:07 Temperature 97.6 F 97.7 F Pulse Rate 61 67 63 Respiratory Rate 20 18 Blood Pressure 120/68 117/66 Pulse Oximetry 96 97 Oxygen Delivery Fraction of Inspired Oxygen 12/29/22 20:00 12/29/22 22:00 12/30/22
[2022-12-30 15:46] LABS: Glucose Point of Care 160 mg/dl (65-105)
--- NOTE | 2022-12-30 17:30 | WPDPN ---
Progress Note: A&P Assessment and Plan (1) Type 2 diabetes mellitus without complications: Qualifiers: Diabetes mellitus residential insulin use: without residential use Qualified Code(s): E11.9 - Type 2 diabetes mellitus without complications Code(s): E11.9 - Type 2 diabetes mellitus without complications Status: Acute (2) HTN (hypertension): Qualifiers: Hypertension type: essential hypertension Qualified Code(s): I10 - Essential (primary) hypertension Code(s): I10 - Essential (primary) hypertension Status: Acute (3) CAD (coronary artery disease): Code(s): I25.10 - Atherosclerotic heart disease of [place] coronary artery without angina pectoris Status: Acute (4) HLD (hyperlipidemia): Qualifiers: Hyperlipidemia type: mixed hyperlipidemia Qualified Code(s): E78.2 - Mixed hyperlipidemia Code(s): E78.5 - Hyperlipidemia, unspecified Status: Acute (5) Low testosterone: Code(s): R79.89 - Other specified abnormal findings of blood chemistry Status: Acute (6) Non-STEMI (non-ST elevated myocardial infarction): Code(s): I21.4 - Non-ST elevation (NSTEMI) myocardial infarction Status: Acute Plan Patient presented with chest pain. Known history of coronary artery disease status post CABG and stents. Underlying hypertension hyperlipidemia and type 2 diabetes mellitus. Chest x-ray with no focal infiltrate. EKG was sinus rhythm no ST-T changes. Initial troponin was negative however 3 hour delta troponin came back elevated at 0.464 and continued to rise to 1.6 this a.m.. Lipase is normal. Admit for non-STEMI. Lovenox dose given in the ER and did receive aspirin. He is already on aspirin and Plavix at home. Cardiology has been consulted. Lovenox received. Diagnostic CT showed significant proximal LAD disease underwent rotational atherectomy with drug-eluting stent placement to large diagonal and proximal LAD segment. This was performed on 11/28/2022. He also had moderate disease involving circumflex and RCA. Recently went to see his regular pan pusher of for follow-up. Discussed with Cardiology. Due to non STEMI and recent workup at [place] recommend transfer to higher facility this was discussed with the patient and wants to get transferred to [place] for further treatment. Transfer accepted by cardiology team at [place]. Awaiting bed placement which is however has been delayed. Discussed with patient and family in detail. 12/30/2022 interval history: patient with complex CAD seen by pan pusher recommneded patient need to be seen by his primary pan pusher at [facility], patient is accepted and waiting for the bed, patient keenan is present in the room, will monitor, Subjective Date/time seen: 12/30/22 17:30 Interval history: Patient presented with chest pain.? Known history of coronary artery disease status post CABG and stents.? Underlying hypertension hyperlipidemia and type 2 diabetes mellitus.? Chest x-ray with no focal infiltrate.? EKG was sinus rhythm no ST-T changes.? Initial troponin was negative however 3 hour delta troponin came back elevated at 0.464 and continued to rise to 1.6 this a.m..? Lipase is normal.? Admit for non-STEMI.? Lovenox dose given in the ER and did receive aspirin.? He is already on aspirin and Plavix at home.? Cardiology has been consulted.? Lovenox received.? Diagnostic CT showed significant proximal LAD disease underwent rotational atherectomy with drug-eluting stent placement to large diagonal and proximal LAD segment.? This was performed on 11/28/2022.? He also had moderate disease involving circumflex and RCA.? Recently went to see his regular pan pusher of for follow-up.? Discussed with Cardiology.? Due to non STEMI and recent workup at [place] recommend transfer to higher facility this was discussed with the patient and wants to get transferred to [place] for further treatment.? Transfer a
[2022-12-30 20:03] LABS: Glucose Point of Care 178 mg/dl (65-105)
[2022-12-31] VITALS (11 sets, daily range): BP systolic 111–141; BP diastolic 56–76; PULSE 54–76; RESP 14–18; TEMP 36.2–37.1; O2SAT 98–100
[2022-12-31 07:59] LABS: Glucose Point of Care 160 mg/dl (65-105)
[2022-12-31] MEDS: OPTI-GEN TAB 1 TABLET PO (08:10)
[2022-12-31] MEDS: ATORVASTATIN 40 MG TABLET PO (08:10)
[2022-12-31] MEDS: RANOLAZINE 500 MG TAB.ER.12H 1000 MG PO (08:10)
[2022-12-31] MEDS: METOPROLOL SUCCINATE EXT REL 50 MG TABCR PO (08:10)
[2022-12-31] MEDS: EMPAGLIFLOZIN 10 MG TABLET PO (08:11)
[2022-12-31] MEDS: MULTIVITAMINS THERAPEUTIC TAB (*BKC) 1 TABLET PO ×2 (08:11→18:30)
[2022-12-31] MEDS: ENOXAPARIN 100 MG/ML SYRINGE 95 MG SUB-Q (08:11)
[2022-12-31] MEDS: ASPIRIN 81 MG CHEWABLE TABLET PO (08:11)
[2022-12-31] MEDS: OMEGA 3 POLYUNSAT FATTY ACIDS 1 GM CAP PO (08:11)
[2022-12-31] MEDS: CLOPIDOGREL BISULFATE 75 MG TABLET PO (08:11)
[2022-12-31] MEDS: GLIMEPIRIDE 1 MG TABLET PO (08:11)
[2022-12-31 11:47] LABS: Glucose Point of Care 104 mg/dl (65-105)
--- NOTE | 2022-12-31 15:40 | PM.PNCARD ---
Progress Note: A&P Assessment and Plan (1) Non-STEMI (non-ST elevated myocardial infarction): Code(s): I21.4 - Non-ST elevation (NSTEMI) myocardial infarction Status: Acute Assessment and Plan: History of RCA stent, CABG with AGUERO to the Left anterior descending, complex PCI of the proximal Left anterior descending and large diagonal in October 2022 as described above. Admitted with a non-STEMI. Doing well on full-dose Lovenox. Echo did not show any problems with the anterior are anterolateral wall which is good. Some basal septal hypokinesis which apparently is new, on reviewing the patient's old studies including his echo done at [facility] in July 2022. Do not know if the septal branch was involved in patient's PCI. 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 Pt find is very frustrating that he has not been able to be transferred and we have no date for transfer. Extensive discussions with the patient and his family. --spoke to the patient's router setter, Dr. Morales, to evaluate some reasonable alternative. Both of us feel that, at this point, since the patient has been so stable after several days of anticoagulation and has no high risk features by EKG or Echo, that it is reasonable for him to go home and plan an outpatient catheterization which Dr. Morales' office is scheduling. May not be able to be done this week, but I feel comfortable with waiting until next week as well. --will augment outpatient therapy by changing Plavix to Brilinta. Instructed pt on loading dose and provided samples --patient states that he ran out of ranolazine about a week or so prior to admission and requests a refill of this as well. --take it easy this weekend, no yd work, or exercise. --More discussions w/ pt/daughter. Pt is strongly in favor of this plan. After reassurance that both Dr. Morales and I thought this was a good alternative, daughter felt better about this option. (2) CAD (coronary artery disease): Code(s): I25.10 - Atherosclerotic heart disease of [place] coronary artery without angina pectoris Status: Acute Assessment and Plan: As above. --continue DAPT, atorvastatin, metoprolol Time Spent With Patient Time: I spent 56 minutes w/ pt and his family, reviewing chart, discussing situation w/ his RN, and also discussing situation with Dr. Morales. After all the above, [facility] called with a bed available, so likely the pt will be transferred to [facility] this evening. Subjective Date/time seen: 12/31/22 15:40 Interval history: Follow-up for non-STEMI, CAD. Followed by Dr. Joe Morales at [facility]. 12/29/2022: 67-year-old man with coronary artery disease recent complex PCI to the proximal LAD/1st diagonal as detailed in the notes above done at [facility].? He presents with a non ST elevation OR over the weekend here.? He is otherwise clinically stable at this time.? Awaiting transfer to [place], bed availability is apparently delaying the process of transfer.? He is otherwise very stable.? 12/30/2022: Patient remains chest pain-free, on Lovenox. Daughters, at bedside. Ambulating. Patient is very eager to have resolution of his problem. So far, no beds available at [facility]. Patient is considering discharge an outpatient follow-up there. Date of service 12/31/2022: Patient remains chest pain-free, up and ambulating, daughter at the bedside. Still no beds available at [facility]. Review of Systems Review of Systems: No shortness of breath, chest pain, dizziness, trouble walking, or eating difficulties. Exam Const: General: cooperative, healthy appearing and comfortable; No confusion Orientation/consciousness: oriented to person, patient oriented x3 and No confusion Other: Very cordial and pleasant middle-aged male in no distress, up and ambulating in the room. Eyes: General: appearance normal, both eye
--- NOTE | 2022-12-31 16:45 | PM.TDS ---
Transfer Discharge Sum: Prov Provider Date of admission: 12/27/22 18:49 Primary care physician: Dionte Bermudez MD Admitting clinician: Naseem Armando MD Consults: 12/27/22 01:02 Consult to Physician Routine Comment: Consulting Provider: Sheldon Wilson Reason for consultation: Chest pain, elevated troponin history of stents and bypass Has provider been notified: Yes DS: Admitting Diagnosis Discharge Date 12/31/2022 Admitting Diagnosis Chest pain Transfer Discharge Sum: Med Medications Active and Home Medications: Home Medications omega-3 fatty acids 1,000 mg capsule (Fish Oil Concentrate) 1,000 mg PO DAILY 04/02/20 [History Confirmed 12/27/22] vitamins A,C,N-[id number]-[id number] 4,296 mcg-226 mg-90 mg capsule (PreserVision AREDS) 1 cap PO BID 04/02/20 [History Confirmed 12/27/22] metoprolol succinate 50 mg tablet,extended release 24 hr 50 mg PO DAILY #90 tabs 12/27/21 [Rx Confirmed 12/27/22] empagliflozin 10 mg tablet (Jardiance) 10 mg PO DAILY #90 tabs 08/08/22 [Rx Confirmed 12/27/22] linagliptin 5 mg tablet (Tradjenta) 5 mg PO QAM #90 tabs 08/15/22 [Rx Confirmed 12/27/22] metformin 500 mg tablet,extended release 24 hr 1,000 mg PO BID #360 tabs 09/24/22 [Rx Confirmed 12/27/22] atorvastatin 40 mg tablet 40 mg PO DAILY #90 tabs 11/19/22 [Rx Confirmed 12/27/22] Adult One Daily Multivitamin 1 tablet PO BID 12/27/22 [History Confirmed 12/27/22] Plavix 75 mg PO DAILY 12/27/22 [History Confirmed 12/27/22] acetyltyrosine-vitamin B6 1 cap PO BID 12/27/22 [History Confirmed 12/27/22] aspirin 81 mg tablet 81 mg PO DAILY 12/27/22 [History Confirmed 12/27/22] finasteride 1 mg tablet (Propecia) 1 mg PO DAILY 12/27/22 [History Confirmed 12/27/22] glimepiride 1 mg PO DAILY 12/27/22 [History Confirmed 07/29/23] nitroglycerin 0.4 mg sublingual tablet (Nitrostat) 0.4 mg sublingual Q5MIN PRN Chest Pain #25 tabs 12/31/22 [Rx] Active Medications Aspirin (Aspirin 81 Mg Chewable Tablet) 81 mg PO DAILY@0800 [facility] Last Admin: 12/31/22 08:11 Dose: 81 mg Atorvastatin Calcium (Atorvastatin 40 Mg Tablet) 40 mg PO DAILY [facility] Last Admin: 12/31/22 08:10 Dose: 40 mg Clopidogrel Bisulfate (Clopidogrel Bisulfate 75 Mg Tablet) 75 mg PO QAM [facility] Last Admin: 12/31/22 08:11 Dose: 75 mg Empagliflozin (Empagliflozin 10 Mg Tablet) 10 mg PO DAILY [facility] Last Admin: 12/31/22 08:11 Dose: 10 mg Enoxaparin Sodium (Enoxaparin 100 Mg/Ml Syringe) 95 mg SUB-Q Q12HR [facility] Last Admin: 12/31/22 08:11 Dose: 95 mg Fish Oil ([place] 3 Polyunsat Fatty Acids 1 Gm Cap) 1 gm PO DAILY [facility] Last Admin: 12/31/22 08:11 Dose: 1 gm Glimepiride (Glimepiride 1 Mg Tablet) 1 mg PO DAILY@0800 [facility] Last Admin: 12/31/22 08:11 Dose: 1 mg Metoprolol Succinate (Metoprolol Succinate Ext Rel 50 Mg Tabcr) 50 mg PO DAILY [facility] Last Admin: 12/31/22 08:10 Dose: 50 mg Morphine Sulfate (Morphine Sulfate (*Crx) 4 Mg/Ml Inj) 4 mg IV PUSH Q2H PRN PRN Reason: Pain Rated 7-10 Multivitamins Therapeutic (Multivitamins Therapeutic Tab (*Bkc)) 1 tablet PO BID [facility] Last Admin: 12/31/22 08:11 Dose: 1 tablet Multivitamins/Minerals (Opti-Gen Tab) 1 tablet PO BID [facility] Last Admin: 12/31/22 08:10 Dose: 1 tablet Nitroglycerin (Nitroglycerin Sl 0.4 Mg Tablet) 0.4 mg SUBLINGUAL Q5MIN PRN PRN Reason: Chest Pain Last Admin: 12/28/22 16:41 Dose: 0.4 mg Ranolazine (Ranolazine 500 Mg Tab.Er.12h) 1,000 mg PO Q12HR [facility] Last Admin: 12/31/22 08:10 Dose: 1,000 mg Sitagliptin Phosphate (Sitagliptin 100 Mg Tablet) 100 mg PO QAM SAÚL Last Admin: 12/31/22 08:11 Dose: 100 mg Transfer Discharge Sum: Hosp Hospital Course Hospital course: Micheal Chin is a 67 year old male Patient presented with chest pain.? Known history of coronary artery disease status post CABG and stents.? Underlying hypertension hyperlipidemia and type 2 diabetes mellitus.? Chest x-ray with no focal infiltrate.? EKG was sinus rhythm no ST-T changes.? Initial troponin was negative however 3
[2022-12-31 17:11] LABS: Glucose Point of Care 102 mg/dl (65-105)
== END 2022-12-31 18:38 | disposition short-term general hospital (02) | DRG 282 ==
LOC: ANHED 12-27 00:23 → ANHIMU 12-27 02:49
PROVIDERS: Emergency Medicine; Internal Medicine; Admitting Provider Internal Medicine; Emergency Provider Emergency Medicine; PCP Family Medicine; Visit Provider Family Medicine
DX: I21.4 Non-ST elevation (NSTEMI) myocardial infarction (principal); I25.10 Atherosclerotic heart disease of native coronary artery without angina pectoris; I10 Essential (primary) hypertension; E78.5 Hyperlipidemia, unspecified; E11.9 Type 2 diabetes mellitus without complications; Z95.5 Presence of coronary angioplasty implant and graft; Z95.1 Presence of aortocoronary bypass graft; Z79.01 Long term (current) use of anticoagulants; Z87.891 Personal history of nicotine dependence
CPT/HCPCS: 36415; 71046; 80053; 82948; 83690; 83735; 84484; 85025; 85027; 85610; 85730; 93005; 96372; 99285; A9270; C8929; G0378; J1650; Q9957

== ENCOUNTER 2023-02-09 18:00 | Outpatient (RCR) | payer MEDICARE, SELFPAY ==
[2023-01-07 18:58] VITALS: PULSE 77
[2023-01-12 18:44] LABS: Glucose Point of Care 100 mg/dl (65-105)
== END 2023-03-19 14:28 | disposition home or self-care (01) ==
LOC: ANHCPREHAB 18:00
PROVIDERS: PCP Family Medicine; Visit Provider Internal Medicine Cardiovascular Disease
DX: Z95.5 Presence of coronary angioplasty implant and graft (principal)
CPT/HCPCS: 93798

== ENCOUNTER 2023-07-28 17:10 | Outpatient (CLI) | payer MEDICARE, SELFPAY ==
--- NOTE | ~2023-07-28 | XR_ITS ---
EXAMINATION: XR chest 2V Exam Date/Time: 07/28/2023 17:28 MEDICAL CONSULTANT HISTORY: R05.9 - Cough, unspecified Comparison: 12/26/2022. RESULT: Lines, tubes, and devices: Intact sternotomy wires. Mediastinal surgical clips. Lungs and pleura: Clear. Cardiomediastinal silhouette: Stable. Other: No acute osseous or upper abdominal finding. IMPRESSION: No acute cardiopulmonary process. Reviewed, dictated and finalized at location K. CAL CONSULTANT
[2023-07-28 18:16] LABS: Influenza A QL RT-PCR Negative (Negative); Influenza B QL RT-PCR Negative (Negative); RSV RNA, RT-PCR Negative (Negative); SARS-CoV-2 RNA PCR Negative (Negative)
== END 2023-07-28 17:11 | disposition home or self-care (01) ==
PROVIDERS: PCP Family Medicine; Visit Provider Family Medicine
DX: R05.9 Cough, unspecified (principal); J06.9 Acute upper respiratory infection, unspecified; Z20.822 Contact with and (suspected) exposure to COVID-19
CPT/HCPCS: 71046; 87637

== ENCOUNTER 2023-10-01 12:37 | Outpatient (CLI) | payer MEDICARE, SELFPAY ==
--- NOTE | ~2023-10-01 | XR_ITS ---
Left wrist Technique: PA, oblique, lateral, and ulnar deviation views were obtained. Clinical History: Pain Findings: No acute fracture or dislocation is seen. Osseous alignment is anatomic. Joint spaces are p reserved. Soft tissues are unremarkable. Impression: Unremarkable left wrist radiographs. Reviewed, dictated and finalized at location . Impression: Unremarkable left wrist radiographs.
== END 2023-10-01 12:38 | disposition home or self-care (01) ==
LOC: ANHIMG 12:38
PROVIDERS: PCP Family Medicine; Visit Provider Physician Assistant
DX: M25.532 Pain in left wrist (principal)
CPT/HCPCS: 73110

== ENCOUNTER 2023-10-13 17:16 | Outpatient (CLI) | payer MEDICARE, SELFPAY ==
--- NOTE | ~2023-10-13 | XR_ITS ---
EXAMINATION: XR chest 2V Exam Date/Time: 10/13/2023 17:20 CDT HISTORY: R07.9 - Chest pain, unspecified Comparison: 07/28/2023. RESULT: Lines, tubes, and devices: Cholecystectomy clips. Intact sternotomy wires. Surgical clips. Coronary stenting. Lungs and pleura: Clear. Cardiomediastinal silhouette: Stable. Other: No acute osseous or upper abdominal finding. IMPRESSION: No acute cardiopulmonary process. Reviewed, dictated and finalized at location K.
== END 2023-10-13 17:17 | disposition home or self-care (01) ==
LOC: ANHIMG 17:17
PROVIDERS: PCP Family Medicine; Visit Provider Family Medicine
DX: R07.9 Chest pain, unspecified (principal)
CPT/HCPCS: 71046